=== PATIENT | male | born 1950 | race African-American/Black ===

== ENCOUNTER 2017-05-18 10:45 | Emergency (ER) | payer BC ==
[~2017-05-18] VITALS: Ht 182.9 cm; Wt 116.1 kg
[2017-05-18 10:50] VITALS: Ht 182.9 cm; Wt 116.1 kg
[2017-05-18 12:09] LABS: CALCIUM 9.2 mg/dL (8.5-10.1); CARBON DIOXIDE 28.9 mmol/L (21-32); CHLORIDE SERUM 101 mmol/L (98-107); CREATININE SERUM 1.1 mg/dL (0.7-1.3); GFR1 > 60 mL/min; GLUCOSE SERUM 104 mg/dL (74-106); POTASSIUM SERUM 3.6 mmol/L (3.5-5.1); SODIUM SERUM 137 mmol/L (136-145)
[2017-05-18 12:12] LABS: BASOPHIL % 0.4 % (0-2); PLATELET COUNT 248 x10^3mcL (130-400); RED CELL DISTRIBUTION WIDTH 14.5 % (11.5-14.5)
[2017-05-18 12:15] LABS: ALBUMIN 3.9 g/dL (3.4-5.0); ALKALINE PHOSPHATASE 87 U/L (46-116); ALT/SGPT 56 U/L (16-63); AST/SGOT 33 U/L (15-37); BILIRUBIN TOTAL 0.7 mg/dL (0.20-1.00); TOTAL PROTEIN, SERUM 7.8 g/dL (6.4-8.2)
[2017-05-18 13:19] LABS: microscopic required? YES; urine erythrocyte 3+ (NEGATIVE)
[2017-05-18 14:15] VITALS: BP 159/89
== END 2017-05-18 14:15 | disposition home or self-care (01) ==
LOC: ED 10:45
PROVIDERS: Specialist
DX: R31.9 Hematuria, unspecified (principal); I10 Essential (primary) hypertension
CPT/HCPCS: 36415

== ENCOUNTER 2017-10-18 07:01 | Emergency (ER) | payer BC ==
[~2017-10-18] VITALS: Ht 185.4 cm; Wt 111.1 kg
[2017-10-18 07:04] VITALS: Ht 185.4 cm; Wt 111.1 kg
[2017-10-18 07:56] LABS: BASOPHIL % 0.4 % (0-2); PLATELET COUNT 283 x10^3mcL (130-400)
[2017-10-18 07:57] LABS: RED CELL DISTRIBUTION WIDTH 14.7 % (11.5-14.5)
[2017-10-18 08:28] LABS: CALCIUM 9.4 mg/dL (8.5-10.1); CARBON DIOXIDE 27.1 mmol/L (21-32); CHLORIDE SERUM 104 mmol/L (98-107); CREATININE SERUM 1.1 mg/dL (0.7-1.3); GFR1 > 60 mL/min; GLUCOSE SERUM 116 mg/dL (74-106); POTASSIUM SERUM 3.3 mmol/L (3.5-5.1); SODIUM SERUM 141 mmol/L (136-145)
[2017-10-18 08:32] LABS: ALBUMIN 3.7 g/dL (3.4-5.0); ALKALINE PHOSPHATASE 79 U/L (46-116); ALT/SGPT 52 U/L (16-63); AST/SGOT 24 U/L (15-37); TOTAL PROTEIN, SERUM 7.6 g/dL (6.4-8.2)
[2017-10-18 09:15] VITALS: BP 146/99
== END 2017-10-18 09:15 | disposition home or self-care (01) ==
LOC: ED 07:01
PROVIDERS: Emergency Medicine
DX: R50.9 Fever, unspecified (principal); I10 Essential (primary) hypertension; E78.5 Hyperlipidemia, unspecified
CPT/HCPCS: 36415; Q0092

== ENCOUNTER 2017-10-22 10:53 | Emergency (ER) | payer BC, OTHER ==
[~2017-10-22] VITALS: Ht 185.4 cm; Wt 111.6 kg
[2017-10-22 10:58] VITALS: Ht 185.4 cm; Wt 111.6 kg
[2017-10-22 12:00] LABS: PLATELET COUNT 295 x10^3mcL (130-400)
[2017-10-22 12:12] LABS: CALCIUM 9.3 mg/dL (8.5-10.1); CARBON DIOXIDE 29.2 mmol/L (21-32); CHLORIDE SERUM 108 mmol/L (98-107); CREATININE SERUM 1.1 mg/dL (0.7-1.3); GFR1 > 60 mL/min; GLUCOSE SERUM 103 mg/dL (74-106); POTASSIUM SERUM 3.7 mmol/L (3.5-5.1); SODIUM SERUM 145 mmol/L (136-145)
[2017-10-22 12:16] LABS: ALBUMIN 3.6 g/dL (3.4-5.0); ALKALINE PHOSPHATASE 79 U/L (46-116); ALT/SGPT 45 U/L (16-63); AST/SGOT 20 U/L (15-37); BILIRUBIN TOTAL 0.53 mg/dL (0.20-1.00); CHOLESTEROL 137 mg/dL (<200); HDL CHOLESTEROL 46 mg/dL (40-60); LIPASE 181 IU/L (73-393); TOTAL PROTEIN, SERUM 7.5 g/dL (6.4-8.2); TRIGLYCERIDES 76 mg/dL (<150)
[2017-10-22 12:29] LABS: BAND NEUTROPHIL 4 % (0-10); MONOCYTE 12 % (0-7); SEGMENTED NEUTROPHILS 63 % (37-75); rbc morphology (normal/abnorm) NORMAL (NORMAL)
[2017-10-22 12:36] LABS: T3 TOTAL 1.08 ng/mL
[2017-10-22 12:51] VITALS: BP 145/95
[2017-10-22 13:09] LABS: FREE T4 0.83 ng/dL (0.76-1.46); FREE THYROXINE INDEX 2.3 ug/dL (1.4-4.5); T4(THYROXINE) 7.3 ug/dL (4.7-13.3)
== END 2017-10-22 12:51 | disposition home or self-care (01) ==
LOC: ED 10:53
PROVIDERS: Specialist
DX: K21.9 Gastro-esophageal reflux disease without esophagitis (principal); I10 Essential (primary) hypertension; E78.5 Hyperlipidemia, unspecified
CPT/HCPCS: 83880; 84439; J3490; J7030; Q0092

== ENCOUNTER 2018-01-19 10:03 | Emergency (ER) | payer BC, OTHER ==
[~2018-01-19] VITALS: Ht 185.4 cm; Wt 111.1 kg
[2018-01-19 11:03] VITALS: BP 147/77
== END 2018-01-19 11:03 | disposition home or self-care (01) ==
LOC: ED 10:03
DX: I16.0 Hypertensive urgency (principal); E78.5 Hyperlipidemia, unspecified; Z98.890 Other specified postprocedural states

== ENCOUNTER 2019-07-23 05:17 | Emergency (ER) | payer BC ==
[~2019-07-23] VITALS: Ht 185.4 cm; Wt 112.9 kg
[2019-07-23 05:23] VITALS: Ht 185.4 cm; Wt 112.9 kg
[2019-07-23 07:03] LABS: CALCIUM 8.9 mg/dL (8.5-10.1); CHLORIDE SERUM 104 mmol/L (98-107); CREATININE SERUM 1.1 mg/dL (0.7-1.3); GFR1 > 60 mL/min; GLUCOSE SERUM 119 mg/dL (74-106); POTASSIUM SERUM 3.8 mmol/L (3.5-5.1); SODIUM SERUM 141 mmol/L (136-145)
[2019-07-23 07:15] LABS: ALBUMIN 3.5 g/dL (3.4-5.0); ALKALINE PHOSPHATASE 81 U/L (46-116); ALT/SGPT 39 U/L (16-63); AST/SGOT 19 U/L (15-37); BILIRUBIN TOTAL 0.8 mg/dL (0.20-1.00); TOTAL PROTEIN, SERUM 6.9 g/dL (6.4-8.2)
[2019-07-23 07:20] LABS: BASOPHIL % 0.6 % (0-2)
[2019-07-23 07:22] LABS: RED CELL DISTRIBUTION WIDTH 14.8 % (11.5-14.5)
[2019-07-23 07:36] VITALS: BP 157/99
[2019-07-23 09:34] LABS: PLATELET COUNT 218 x10^3mcL (130-400)
== END 2019-07-23 07:36 | disposition home or self-care (01) ==
LOC: ED 05:17
PROVIDERS: Emergency Medicine
DX: I10 Essential (primary) hypertension (principal)
CPT/HCPCS: Q0092